=== PATIENT | female | born 1965 | race Caucasian/White ===

== ENCOUNTER 2017-04-10 09:47 | Emergency (ER) | END 2017-04-10 13:13 | disposition home or self-care (01) ==

== ENCOUNTER 2018-06-25 05:17 | Emergency (ER) | payer BC ==
[~2018-06-25] VITALS: Ht 152.4 cm; Wt 65.3 kg
[~2018-06-25 05:17] MED LIST: ACET500C5 PO; BENZ-6 PO; CETI10CA PO; GLYB5TAB3; GUAI5SYR2 PO; IBUP-1542 PO
[2018-06-25 05:29] VITALS: BP 167/72; PULSE 100; RESP 18; Ht 152.4 cm; Wt 65.3 kg
[2018-06-25] MEDS ORDERED: PSEU-79 PO (06:37)
[2018-06-25] MEDS ORDERED: NAPR-985 PO (06:37)
[2018-06-25] MEDS ORDERED: MED4DP PO (06:37)
--- NOTE | 2018-06-25 07:27 | ERD ---
ER Documentation Chief Complaint Chief Complaint sore throat/cough/runny nose x 3 days. also c/o numbness left foot HPI 52-year-old female presenting with a sore throat runny nose and cough. Patient also has some numbness to her left foot. She woke up with numbness but denies any headaches patient denies weakness. She has a history of diabetes. She has not taken medications. She denies recent falls. She has no fevers. Has not taken medications for symptoms. Has a mild sore throat with runny nose and dry cough. Denies medical problems. NKDA. Surgical history arm surgery to her left side. Social history denies ROS All systems reviewed and are negative except as per history of present illness. Medications Home Meds Active Scripts Naproxen* (Naprosyn*) 500 Mg Tablet, 500 MG PO BID PRN for PAIN AND/OR INFLAMMATION, #30 TAB Prov:DAYANNA BREWER PA-C 06/25/18 Pseudoephedrine Hcl* (Suphedrin*) 30 Mg Tablet, 30 MG PO Q6 PRN for CONGESTION, #30 TAB Prov:DAYANNA BREWER PA-C 06/25/18 Methylprednisolone* (Medrol* DOSE PACK) 4 Mg/Dose-Pack Tab.ds.pk, 4 MG PO . DIRECTED, #1 PACKET Prov:DAYANNA BREWER PA-C 06/25/18 Benzonatate* (Tessalon Perle*) 100 Mg Capsule, 100 MG PO Q8H PRN for COUGH for 5 Days, CAP Prov:JAIR BELTRAN PA-C 04/10/17 Cetirizine Hcl* (Zyrtec*) 10 Mg Capsule, 10 MG PO DAILY, #10 TAB.CHEW Prov:JAIR BELTRAN PA-C 04/10/17 Guaifenesin-Dextromethorphan* (Robitussin* DM) 100MG/10MG/5ML Syrup, 10 ML PO Q6H PRN for COUGH for 5 Days, ML Prov:JAIR BELTRAN PA-C 04/10/17 Acetaminophen* (Tylophen*) 500 Mg Capsule, 1 CAP PO Q6H PRN for PAIN AND OR ELEVATED TEMP, #30 CAP Prov:JAIR BELTRAN PA-C 04/10/17 Ibuprofen* (Motrin*) 600 Mg Tab, 600 MG PO Q6, #30 TAB Prov:JAIR BELTRAN Jen RIOS 04/10/17 Reported Medications Glyburide* (Glyburide*) 5 Mg Tablet, UNKNOWN 01/06/11 Allergies Allergies: Coded Allergies: No Known Allergy (Unverified , 11/06/13) PMhx/Soc History of Surgery: No Anesthesia Reaction: No Hx Neurological Disorder: No Hx Respiratory Disorders: No Hx Cardiac Disorders: No Hx Psychiatric Problems: No Hx Miscellaneous Medical Probl: No Hx Alcohol Use: No Hx Substance Use: No Hx Tobacco Use: No Smoking Status: Never smoker FmHx Family History: No diabetes, No coronary disease, No other Physical Exam Vitals Vital Signs Date Temp Pulse Resp B/P (MAP) Pulse Ox O2 O2 Flow FiO2 Time Delivery Rate 06/25/18 99.5 100 18 167/72 96 05:29 (103) Physical Exam GENERAL: The patient is well-appearing, well-nourished, in no acute distress HEENT: Atraumatic. Conjunctivae are pink. Pupils equal, round, and reactive to light. There is no scleral icterus. Tympanic membranes clear bilaterally. Oropharynx clear. No nystagmus or photophobia. NECK: C-spine is soft and supple. There is no meningismus. There is no cervical lymphadenopathy. No JVD. No bruits. No goiter. CHEST: Clear to auscultation bilaterally. There are no rales, wheezes or rhonchi. HEART: Regular rate and rhythm. No murmurs, clicks, rubs or gallops. EXTREMITIES: Equal pulses bilaterally. There is no peripheral clubbing, cyanosis or edema. No focal swelling or erythema. Full range of motion. Grossly neurovascularly intact. NEUROLOGIC: Alert and oriented. Cranial nerves II through XII intact. Motor strength in all 4 extremities with 5 out of 5 strength. Sensation grossly intact. Normal speech and gait. SKIN: There is no apparent rash or petechiae. The skin is warm and dry. Procedures/MDM DM: 52-year-old female presenting with paresthesias. Patient has viral URI. I have considered possible stroke however have low suspicion. Patient has normal strength and extremity exam is within normal limits. Patient is discharged with strict ER precautions and told to follow-up with primary care within 1 to 2 days for close evaluation. All questions answered at discharge Departure Diagnosis: Primary Impression: Sore throat Condition: Stable Patient Instructions: Self-Care for Sore Throats, Paraesthesias Referrals: [facility] YOU HAVE RECEIVED A MEDICAL SCREENING EXAM AND THE RESULTS INDICATE THAT YOU DO NOT HAVE A CONDITION THAT REQUIRES URGENT TREATMENT IN THE EMERGENCY DEPARTMENT. FURTHER EVALUATION AND TREATMENT OF YOUR CONDITION CAN WAIT UNTIL YOU ARE SEEN IN YOUR DOCTORS OFFICE WITHIN THE NEXT 1-2 DAYS. IT IS YOUR RESPONSIBILITY TO MAKE AN APPOINTMENT FOR FOLOW-UP CARE. IF YOU HAVE A PRIMARY DOCTOR --you should call your primary doctor and schedule an appointment IF YOU DO NOT HAVE A PRIMARY DOCTOR YOU CAN CALL OUR PHYSICIAN REFERRAL HOTLINE AT IF YOU CAN NOT AFFORD TO SEE A PHYSICIAN YOU CAN CHOSE FROM THE FOLLOWING [facility] [address] [address] [facility] [address] [facility] [facility] [address] [facility] [facility] [address]. [facility] [address] [facility]. [facility] [address] Additional Instructions: FOLLOW UP WITH YOUR PRIMARY CARE PHYSICIAN TOMORROW.Return to this facility if you are not improving as expected. DAYANNA BREWER PA-C June 25, 2018 07:27
== END 2018-06-25 08:03 | disposition home or self-care (01) ==
LOC: FTE 05:17
DX: J02.9 Acute pharyngitis, unspecified (principal)
CPT/HCPCS: 99283